=== PATIENT | female | born 1955 | race Caucasian/White ===

== ENCOUNTER 2020-09-26 14:22 | Outpatient (CLI) | payer BC | END 2020-09-26 14:23 | disposition home or self-care (01) | LOC: CSHULT 14:22 | PROVIDERS: ATTEND Family Medicine | DX: N83.9 Noninflammatory disorder of ovary, fallopian tube and broad ligament, unspecified (principal) | CPT/HCPCS: 76856 ==

== ENCOUNTER 2024-05-01 10:33 | Outpatient (CLI) | payer MEDICARE | END 2024-05-01 10:34 | disposition home or self-care (01) | LOC: CSHMAMMO 10:33 | PROVIDERS: ATTEND Family Medicine | DX: Z12.31 Encounter for screening mammogram for malignant neoplasm of breast (principal); Z80.3 Family history of malignant neoplasm of breast; Z98.82 Breast implant status; Z98.890 Other specified postprocedural states | CPT/HCPCS: 77063; 77067 ==

== ENCOUNTER 2024-09-17 11:04 | Inpatient (IN) | payer MEDICARE ==
[2024-09-14 16:01] VITALS: BMI 24.1
[2024-09-17] MEDS ORDERED: Ondansetron PF 4 MG/2 ML Vial ONE (12:02)
[2024-09-17] MEDS ORDERED: Dexamethasone 4 mg/ml Vial ONE (12:02)
[2024-09-17] MEDS ORDERED: Lidocaine 1% PF 5 ML VIAL ONE (12:02)
[2024-09-17] MEDS ORDERED: PROPOFOL 40 ML ONE (12:02)
[2024-09-17] MEDS ORDERED: SUGAMMADEX SODIUM 200 MG/2 ML VIAL ONE (12:02)
[2024-09-17] MEDS ORDERED: Rocuronium Bromide 10 MG/ML (10ML VIAL) ONE (12:02)
[2024-09-17 12:16] LABS: #Basophils 0.03 10x3/uL (0.0-0.2); #Monocytes 0.61 10x3/uL (0.0-1.1); #Neutrophils 3.66 10x3/uL (1.5-8.4); %Basophils 0.5 % (0.0-2.0); %Eosinophils 1.5 % (0.0-6.0); %Lymphocytes 32.9 % (18.0-47.0); %Monocytes 9.3 % (0.0-10.0); %Neutrophils 55.6 % (40.0-75.0); Hematocrit 39.4 % (34.9-44.5); Mean Corpuscular Hemoglobin 29.2 pg (27.0-33.0); Mean Corpuscular Volume 88.5 fL (81.6-98.3); Mean Platelet Volume 10.7 fL (7.4-10.4); Platelet Count 299 10x3/uL (150-450); RBC Distribution Width 13.4 % (11.5-14.5); Red Blood Cell (RBC) Count 4.45 10x6/uL (3.90-5.03); White Blood Cell (WBC) Count 6.57 10x3/uL (3.5-10.5)
[2024-09-17 12:50] LABS: Anion Gap 16 mmol/L (10-20); BUN (Urea Nitrogen) 8 mg/dL (9.8-20.1); Calc. Creatinine Clearance 101 mL/min (70-130); Calcium 9.7 mg/dL (7.8-10.44); Carbon Dioxide 22 mmol/L (23-31); Chloride 107 mmol/L (98-107); Estimated GFR 95; Glucose 89 mg/dL (80-115); Potassium 5.5 mmol/L (3.5-5.1); Sodium 139 mmol/L (136-145)
[2024-09-17] MEDS ORDERED: Bupivacaine/Epinephrine 0.25% 30 ML VIAL ONE (13:17)
[2024-09-17] MEDS ORDERED: CEFAZOLIN 2 GM VIAL ONE (13:17)
[2024-09-17] MEDS ORDERED: Acetaminophen 500 MG TAB ONE (13:23)
[2024-09-17] MEDS ORDERED: Ketorolac Tromethamine 30 MG (1 mL) VIAL ONE (13:23)
[2024-09-17] MEDS ORDERED: Fentanyl 100 MCG/2 ML VIAL ONE ×2 (13:27→14:30)
[2024-09-17] MEDS ORDERED: PHENYLEPHRINE-NS 100 MCG/ML 10 ML SYRINGE ONE (13:50)
[2024-09-17] MEDS ORDERED: Morphine 4 MG/ML VIAL SLOW IVP PRN (16:49)
[2024-09-17] MEDS ORDERED: Ipratropium/Albuterol 3 ML NEB NEB PRN (16:49)
[2024-09-17] MEDS ORDERED: Ondansetron PF 4 MG/2 ML Vial IVP PRN (16:49)
[2024-09-17] MEDS ORDERED: Promethazine HCl 25 MG/ML VIAL IM PRN (16:49)
[2024-09-17] MEDS ORDERED: hydrALAZINE 20 MG/ML VIAL SLOW IVP PRN (16:49)
[2024-09-17] MEDS ORDERED: Morphine 2 MG/ML VIAL SLOW IVP PRN (16:49)
[2024-09-17] MEDS: HYDROcodone/Acetaminophen 7.5/325 mg Tablet PO PRN (17:05)
[2024-09-17] MEDS: D5 1/2 NS w/20 mEq KCL 1,000 ML IV SCH (17:09)
[2024-09-17] MEDS: Ketorolac Tromethamine 30 MG (1 mL) VIAL IVP SCH (18:06)
[2024-09-17] MEDS: Cyclobenzaprine 10 MG TAB PO SCH (21:23)
[2024-09-17] MEDS: Famotidine/PF 20 mg/2ml Vial SLOW IVP SCH (21:24)
[2024-09-17] MEDS: Famotidine 20 MG TAB PO SCH (21:24)
[2024-09-17] MEDS: Rosuvastatin 10 MG TAB PO SCH (21:24)
[2024-09-18 04:29] VITALS: TEMP 97.9
[2024-09-18 05:02] LABS: Anion Gap 13 mmol/L (10-20); BUN (Urea Nitrogen) 7 mg/dL (9.8-20.1); Calc. Creatinine Clearance 108 mL/min (70-130); Calcium 8.6 mg/dL (7.8-10.44); Carbon Dioxide 21 mmol/L (23-31); Chloride 110 mmol/L (98-107); Estimated GFR 97; Glucose 178 mg/dL (80-115); Hematocrit 33.2 % (34.9-44.5); Hemoglobin 11.4 g/dL (12.0-15.5); Mean Corpuscular HGB CONC 34.3 g/dL (32.0-36.0); Mean Corpuscular Hemoglobin 30.2 pg (27.0-33.0); Mean Corpuscular Volume 88.1 fL (81.6-98.3); Mean Platelet Volume 10.7 fL (7.4-10.4); Platelet Count 272 10x3/uL (150-450); Potassium 4.8 mmol/L (3.5-5.1); RBC Distribution Width 13.6 % (11.5-14.5); Red Blood Cell (RBC) Count 3.77 10x6/uL (3.90-5.03); Sodium 139 mmol/L (136-145); White Blood Cell (WBC) Count 8.73 10x3/uL (3.5-10.5)
[2024-09-18 06:22] LABS: Band 19 % (5-11); Lymphocytes 2 % (21-51); MDiff Complete? YES; Monocytes 4 % (0-10); Neutrophil 75 % (42-75); Platelet Adequacy Comment Appears Adequate; RBC Morphology Within Normal Limits
[2024-09-18 08:49] VITALS: BP 118/55
[2024-09-18] MEDS ORDERED: Non-Formulary Medication 1 EACH (Famotidine [Famotidine] 40 MG Tablet) PO SCH (09:00)
[2024-09-18] MEDS ORDERED: Non-Formulary Medication 1 EACH (Linaclotide [Linzess] 145 MCG Capsule) PO SCH (09:00)
[2024-09-18] MEDS ORDERED: [UNRECOGNIZED DRUG - OTHER] PO SCH (09:00)
[2024-09-18] MEDS ORDERED: ESTROGEN ESTER PO SCH (09:00)
[2024-09-18] MEDS ORDERED: TESTOSTERONE PO SCH (09:00)
== END 2024-09-18 10:25 | disposition home or self-care (01) | DRG 328 ==
LOC: INTOOBSV 11:04 → CSHTELE 11:04 → EDSTATUS 12:42 → OBSVTOIN 13:23 → CSHTELE 16:48
PROVIDERS: ADMIT Specialist; ATTEND Specialist
PROC: 0DV44ZZ Restriction of Esophagogastric Junction, Percutaneous Endoscopic Approach (ICD-10-PCS; principal; 2024-09-17)
PROC: 8E0W4CZ Robotic Assisted Procedure of Trunk Region, Percutaneous Endoscopic Approach (ICD-10-PCS; 2024-09-17)
DX: K21.9 Gastro-esophageal reflux disease without esophagitis (principal); K44.9 Diaphragmatic hernia without obstruction or gangrene; G43.909 Migraine, unspecified, not intractable, without status migrainosus; K59.00 Constipation, unspecified; Z90.89 Acquired absence of other organs; Z90.49 Acquired absence of other specified parts of digestive tract
CPT/HCPCS: 36415; 71045; 80048; 85025; 88302; 93005; 93010; 94760; J1100; J1885; J2405; J2704; J3010; J3480; J3490; S2900